=== PATIENT | female | born 1970 | race African-American/Black ===

== ENCOUNTER 2017-07-14 18:09 | Emergency (ER) | payer SELFPAY ==
[~2017-07-14 18:09] MED LIST: ASPI81TA82 PO; HYDR-3534 PO
[2017-07-14 18:10] VITALS: BP 140/70; PULSE 72; RESP 15; TEMP 98.2; O2SAT 98
--- NOTE | 2017-07-14 18:25 | PD ---
Physical Exam Date Seen by Provider: Jul 14, 2017 Time Seen by Provider: 18:21 Narrative 47-year-old female presents the emergency department with left foot pain which started on Tuesday. Patient states it's gotten much worse since last night into today. Pain is localized to the distal lateral sole. There are no open wounds or cracks in the skin. No history of this in the past. Pain is 8 out of 10. No history of gout or arthritis. No known drug allergies. Vitals are stable, patient is awaiting med bed placement. Data Data Last Documented VS Vital Signs Date Time Temp Pulse Resp B/P (MAP) Pulse Ox O2 Delivery O2 Flow Rate FiO2 07/14/17 18:10 98.2 72 15 140/70 (93) 98 MDM Medical Record Reviewed: Yes Supervised Visit with JELLY: Yes Condition: Stable Bob Shane Jul 14, 2017 18:25
[2017-07-14] MEDS ORDERED: ASPI81CH CHEW (19:09)
--- NOTE | 2017-07-14 19:10 | PD ---
HPI Chief Complaint: Edema Time Seen by Provider: 19:00 Travel History International Travel<30 days: No Contact w/Intl Traveler<30days: No Traveled to known affect area: No History of Present Illness HPI 47-year-old female presents for evaluation of left foot pain. Symptoms started 2 days ago. The pain is an aching pain which is constant but worsened walking. Pain is localized to the plantar aspect of the left forefoot. She tried using ibuprofen the pain persisted which prompted evaluation. She denies any trauma but she does note that she is currently on vacation from [place] and has been walking much more than usual. She has no other complaints at this time. PFSH Past Medical History Cardiovascular Problems: Yes (MVP, RHEUMATIC HEART DISEASE) Diminished Hearing: No Immunizations Current: Yes ?: Not LMP: HYSTERECTOMY Past Surgical History Genitourinary Surgery: Yes Hysterectomy: Yes Social History Alcohol Use: No Tobacco Use: No Substance Use: No Allergies-Medications (Allergen,Severity, Reaction): Coded Allergies: No Known Allergies (Unverified , 07/14/17) Reported Meds & Prescriptions Reported Meds & Active Scripts Active Ibuprofen 800 Mg Tab 800 Mg PO Q6HR PRN Reported Aspirin 81 Mg Chew 81 Mg CHEW DAILY Review of Systems General / Constitutional: No: Fever Musculoskeletal: Positive: Pain, No: Limited ROM Skin: No Rash Physical Exam Narrative GENERAL: Well-nourished female in no acute distress SKIN: Warm and dry. No bruising or soft tissue swelling HEAD: Atraumatic. Normocephalic. EYES: Pupils equal and round. No scleral icterus. No injection or drainage. ENT: No nasal bleeding or discharge. Mucous membranes pink and moist. NECK: Trachea midline. No JVD. CARDIOVASCULAR: Regular rate and rhythm. No murmur appreciated. RESPIRATORY: No accessory muscle use. Clear to auscultation. Breath sounds equal bilaterally. GASTROINTESTINAL: Abdomen soft, non-tender, nondistended. Hepatic and splenic margins not palpable. MUSCULOSKELETAL: No obvious deformities. There is focal tenderness to palpation of the plantar aspect of the left forefoot soft tissue. There is no tenderness to palpation along the left foot metatarsals or the toes. The patient has pain in the left forefoot with dorsiflexion of her left ankle. There is no ankle tenderness. 2+ dorsalis pedis and posterior tibial pulses. NEUROLOGICAL: Awake and alert. No obvious cranial nerve deficits. Motor grossly within normal limits. Normal speech. Data Data Last Documented VS Vital Signs Date Time Temp Pulse Resp B/P (MAP) Pulse Ox O2 Delivery O2 Flow Rate FiO2 07/14/17 18:10 98.2 72 15 140/70 (93) 98 Orders Orders Foot, Complete ([id number]) (07/14/17 ) Ice/Cold Pack (07/14/17 19:08) Ketorolac Inj (Toradol Inj) (07/14/17 19:15) Splint Or Brace Apply/Monitor (07/14/17 20:14) [facility] Medical Decision Making Medical Screen Exam Complete: Yes Emergency Medical Condition: Yes Medical Record Reviewed: Yes Interpretation(s) CONCLUSION: Nonspecific soft tissue swelling of the forefoot. No fracture or foreign body. Differential Diagnosis Plantar fasciitis, cellulitis, metatarsal stress fracture, tendinitis Narrative Course 47-year-old female here with pain in the plantar aspect of the left forefoot that is worse with walking for the past few days. Examination reveals some focal tenderness to palpation of the soft tissue aspect of the left forefoot consistent with likely fasciitis. X-ray imaging was performed revealing no acute bony abnormalities. The patient was given a dose of Toradol. She is being discharged with a postop shoe, ibuprofen prescription. Diagnosis Primary Impression: Plantar fasciitis of left foot Additional Instructions: Ice pack several times a day 20 minutes at a time. Avoid activities that exacerbate the pain. Ibuprofen as needed. Follow-up with primary care physician in 2 weeks. Return for any emergent medical conditions. Med/Other Pt SpecificInfo: Prescription(s) given Scripts Ibuprofen (Ibuprofen) 800 Mg Tab 800 MG PO Q6HR Y for PAIN, #40 TAB 0 Refills Prov: Charlene Laws DO 07/14/17 Disposition: 01 DISCHARGE HOME Condition: Stable Andrea Ching Jul 14, 2017 19:10
[2017-07-14] MEDS ORDERED: KETOROLAC TROMETHAMINE 60 MG/2 ML (IM) VIAL IM ONE (19:15)
--- NOTE | 2017-07-14 19:41 | RADRPT ---
EXAM DATE/TIME: 07/14/2017 19:25 [facility] COMPARISON: No previous studies available for comparison. INDICATIONS : Left foot pain on bottom of foot, no known injury. MEDICAL HISTORY : None. SURGICAL HISTORY : None. ENCOUNTER: Initial ACUITY: 2 days PAIN SCORE: 10/10 LOCATION: Left foot FINDINGS: Bones of the left foot are intact and normally aligned. Mild soft tissue swelling plantar/lateral asp ect of the forefoot. No radiopaque foreign body. CONCLUSION: Nonspecific soft tissue swelling of the forefoot. No fracture or foreign body. Papito Berkowitz MD on July 14, 2017 at 19:39 Board Certified Radiologist. This report was verified electronically.
[2017-07-14] MEDS ORDERED: IBUP800T23 PO (20:13)
== END 2017-07-14 21:00 | disposition home or self-care (01) ==
LOC: NEPC 18:09
DX: M72.2 Plantar fascial fibromatosis (principal); I09.9 Rheumatic heart disease, unspecified; Z79.82 Long term (current) use of aspirin
CPT/HCPCS: 73630; 96372; 99284; J1885; L3260

== ENCOUNTER 2017-09-22 20:42 | Emergency (ER) | payer SELFPAY ==
[~2017-09-22 20:42] MED LIST changes: +ASPI-516 CHEW; -ASPI81TA82 PO; -HYDR-3534 PO; +IBUP1TAB7 PO
[2017-09-22] MEDS ORDERED: IOHEXOL 350 MG/ML 10 ML VIAL (for RAD DIAG) IVCONTRAST ONE (20:43)
[2017-09-22 20:46] VITALS: BP 110/58; PULSE 87; RESP 20; TEMP 100.8; O2SAT 99
[2017-09-22] MEDS ORDERED: SODIUM CHLOR 0.9% 1000 ML INJ 1,000 ML IV SCH (22:03)
--- NOTE | 2017-09-22 22:07 | PD ---
HPI Chief Complaint: Abdominal Pain Time Seen by Provider: 21:55 Travel History International Travel<30 days: No Contact w/Intl Traveler<30days: No Traveled to known affect area: No History of Present Illness HPI This is a 47-year-old female who presents accompanied by family members for evaluation of abdominal pain. Symptoms started yesterday. She describes it as a crampy intermittent pain in the lower abdominal region. She endorses associated nausea, multiple episodes of watery stool as well as vomiting which just started prior to arrival here. She endorses subjective fevers at home. Denies flank pain, dysuria, vaginal burning or discharge. History of total hysterectomy. No sick contacts. No recent travel. No recent antibiotic use, no recent change in diet. No other complaints. PFSH Past Medical History Heart Rhythm Problems: Yes (MITRAL PROLASPE VALVE ) Cardiovascular Problems: Yes (MVP, RHEUMATIC HEART DISEASE) Diminished Hearing: No Immunizations Current: Yes ?: Not Past Surgical History Genitourinary Surgery: Yes Hysterectomy: Yes Social History Alcohol Use: No Tobacco Use: No Substance Use: No Allergies-Medications (Allergen,Severity, Reaction): Coded Allergies: No Known Allergies (Unverified Adverse Reaction, Unknown, 09/22/17) Reported Meds & Prescriptions Reported Meds & Active Scripts Active Pepcid (Famotidine) 20 Mg Tab 20 Mg PO BID Nexium (Esomeprazole DR) 20 Mg Capdr 20 Mg PO DAILY Ibuprofen 800 Mg Tab 800 Mg PO Q6HR PRN Reported Aspirin 81 Mg Chew 81 Mg CHEW DAILY Review of Systems Except as stated in HPI: all other systems reviewed are Neg Physical Exam Narrative GENERAL: Well-developed well-nourished female in no acute distress, febrile. SKIN: Warm and dry. HEAD: Atraumatic. Normocephalic. EYES: Pupils equal and round. No scleral icterus. No injection or drainage. ENT: No nasal bleeding or discharge. Mucous membranes pink and moist. NECK: Trachea midline. No JVD. CARDIOVASCULAR: Regular rate and rhythm. No murmur appreciated. RESPIRATORY: No accessory muscle use. Clear to auscultation. Breath sounds equal bilaterally. GASTROINTESTINAL: Abdomen soft, tender to palpation in the right periumbilical and right lower quadrant region without guarding. No CVA tenderness. MUSCULOSKELETAL: No obvious deformities. No clubbing. No cyanosis. No edema. NEUROLOGICAL: Awake and alert. No obvious cranial nerve deficits. Motor grossly within normal limits. Normal speech. PSYCHIATRIC: Appropriate mood and affect; insight and judgment normal. Data Data Last Documented VS Vital Signs Date Time Temp Pulse Resp B/P (MAP) Pulse Ox O2 Delivery O2 Flow Rate FiO2 09/23/17 01:40 09/23/17 01:39 84 16 99 Room Air 09/22/17 20:46 100.8 Orders Orders Complete Blood Count With Diff (09/22/17 22:03) Comprehensive Metabolic Panel (09/22/17 22:03) Lipase (09/22/17 22:03) Prothrombin Time / Inr (Pt) (09/22/17 22:03) Act Partial Throm Time (Ptt) (09/22/17 22:03) Urinalysis - C+S If Indicated (09/22/17 22:03) Ct Abd/Pel W Iv Contrast(Rout) (09/22/17 22:03) Iv Access Insert/Monitor (09/22/17 22:03) Ecg Monitoring (09/22/17 22:03) Oximetry (09/22/17 22:03) Morphine Inj (Morphine Inj) (09/22/17 22:15) Ondansetron Inj (Zofran Inj) (09/22/17 22:15) Sodium Chlor 0.9% 1000 Ml Inj (Ns 1000 M (09/22/17 22:03) Sodium Chloride 0.9% Flush (Ns Flush) (09/22/17 22:15) Sepsis Workup Initiated (09/22/17 ) Lactic Acid Sepsis Protocol (09/22/17 22:03) Blood Culture (09/22/17 22:03) Iohexol 350 Inj (Omnipaque 350 Inj) (09/22/17 20:43) Pantoprazole Inj (Protonix Inj) (09/23/17 00:00) Ed Discharge Order (09/23/17 01:17) Labs Laboratory Tests Test 09/22/17 22:19 09/23/17 00:05 White Blood Count 10.6 TH/MM3 Red Blood Count 5.02 MIL/MM3 Hemoglobin 11.8 GM/DL Hematocrit 36.6 % Mean Corpuscular Volume 72.8 FL Mean Corpuscular Hemoglobin 23.5 PG Mean Corpuscular Hemoglobin Concent 32.2 % Red Cell Distribution Width 15.2 % Platelet Count 225 TH/MM3 Mean Platelet Volume 9.0 FL Neutrophils (%) (Auto) 87.6 % Lymphocytes (%) (Auto) 4.1 % Monocytes (%) (Auto) 7.6 % Eosinophils (%) (Auto) 0.4 % Basophils (%) (Auto) 0.3 % Neutrophils # (Auto) 9.3 TH/MM3 Lymphocytes # (Auto) 0.4 TH/MM3 Monocytes # (Auto) 0.8 TH/MM3 Eosinophils # (Auto) 0.0 TH/MM3 Basophils # (Auto) 0.0 TH/MM3 CBC Comment DIFF FINAL Differential Comment Prothrombin Time 12.0 SEC Prothromb Time International Ratio 1.2 RATIO Activated Partial Thromboplast Time 28.0 SEC Blood Urea Nitrogen 7 MG/DL Creatinine 1.05 MG/DL Random Glucose 128 MG/DL Total Protein 7.3 GM/DL Albumin 3.7 GM/DL Calcium Level 8.1 MG/DL Alkaline Phosphatase 44 U/L Aspartate Amino Transf (AST/SGOT) 212 U/L Alanine Aminotransferase (ALT/SGPT) 240 U/L Total Bilirubin 0.5 MG/DL Sodium Level 135 MEQ/L Potassium Level 3.8 MEQ/L Chloride Level 106 MEQ/L Carbon Dioxide Level 20.2 MEQ/L Anion Gap 9 MEQ/L Estimat Glomerular Filtration Rate 68 ML/MIN Lactic Acid Level 0.9 mmol/L Lipase 134 U/L Urine Color LIGHT-YELLOW Urine Turbidity CLEAR Urine pH 5.0 Urine Specific [place] 1.024 Urine Protein NEG mg/dL Urine Glucose (UA) NEG mg/dL Urine Ketones NEG mg/dL Urine Occult Blood NEG Urine Nitrite NEG Urine Bilirubin NEG Urine Urobilinogen LESS THAN 2.0 MG/DL Urine Leukocyte Esterase TRACE Urine RBC 2 /hpf Urine WBC 3 /hpf Urine Squamous Epithelial Cells 2 /hpf Urine Bacteria OCC /hpf Urine Mucus FEW /lpf Microscopic Urinalysis Comment CULT NOT INDICATED MDM Medical Decision Making Medical Screen Exam Complete: Yes Emergency Medical Condition: Yes Medical Record Reviewed: Yes Differential Diagnosis Appendicitis, colitis, diverticulitis, cystitis, pyelonephritis, ureteral stone , cholecystitis Narrative Course The patient was placed on ECG monitoring pulse oximetry. Plan is for basic lab work, blood cultures, CT abdomen and pelvis. She will be given IV fluids, Zofran, morphine. At the end of my shift the patient was signed out to Dr. Marco A pending urinalysis results. She'll be given a copy of her CT results prior to discharge. Scripts Famotidine (Pepcid) 20 Mg Tab 20 MG PO BID, #40 TAB 0 Refills Prov: Jaime Strickland MD 09/23/17 Esomeprazole (Nexium) 20 Mg Capdr 20 MG PO DAILY, #20 CAP 0 Refills Prov: Jaime Strickland MD 09/23/17 Andrea Ching Sep 22, 2017 22:07
[2017-09-22] MEDS ORDERED: MORPHINE SULFATE 4 MG/ML INJ IV PUSH ONE (22:15)
[2017-09-22] MEDS ORDERED: ONDANSETRON HCL 4 MG/2 ML VIAL IVP ONE (22:15)
[2017-09-22] MEDS ORDERED: SODIUM CHLORIDE 0.9% FLUSH 10 ML FLUSH IV FLUSH PRN (22:15)
[2017-09-22 22:19] VITALS: RESP 18; O2SAT 97
[2017-09-22 22:43] LABS: AUTOMATED NEUTROPHIL # 9.3 TH/MM3 (1.8-7.7); BASOPHIL % 0.3 % (0.0-2.0); EOSINOPHIL % 0.4 % (0.0-4.0); HEMATOCRIT 36.6 % (35.0-46.0); HEMO FLAGS DIFF FINAL; LYMPH % 4.1 % (9.0-44.0); LYMPHOCYTE # 0.4 TH/MM3 (1.0-4.8); MEAN CELL VOLUME 72.8 FL (80.0-100.0); MEAN CORPUSCULAR HEMOGLOBIN 23.5 PG (27.0-34.0); MEAN CORPUSCULAR HGB CONC 32.2 % (32.0-36.0); MONO % 7.6 % (0.0-8.0); NEUT % 87.6 % (16.0-70.0); PLATELET COUNT 225 TH/MM3 (150-450); RED BLOOD COUNT 5.02 MIL/MM3 (4.00-5.30); RED CELL DISTRIBUTION WIDTH 15.2 % (11.6-17.2); WHITE BLOOD COUNT 10.6 TH/MM3 (4.0-11.0)
[2017-09-22 22:55] LABS: INTERNATIONAL NORMALIZED RATIO 1.2 RATIO
[2017-09-22 22:56] LABS: ANION GAP 9 MEQ/L (5-15); AST (GOT) 212 U/L (15-37); BICARBONATE 20.2 MEQ/L (21.0-32.0); BLOOD UREA NITROGEN 7 MG/DL (7-18); CHLORIDE 106 MEQ/L (98-107); GLOMERULAR FILTRATION RATE 68 ML/MIN (>89); POTASSIUM 3.8 MEQ/L (3.5-5.1); SODIUM (NA) 135 MEQ/L (136-145)
[2017-09-22 22:57] LABS: ALT (GPT) 240 U/L (10-53)
[2017-09-22 22:59] LABS: ALKALINE PHOSPHATASE 44 U/L (45-117); TOTAL BILIRUBIN ADULT 0.5 MG/DL (0.2-1.0)
--- NOTE | 2017-09-22 23:47 | RADRPT ---
EXAM DATE/TIME: 09/22/2017 23:21 [facility] COMPARISON: No previous studies available for comparison. INDICATIONS : Abdominal pain with diarrhea. IV CONTRAST: 100 cc Omnipaque 350 (iohexol) IV ORAL CONTRAST: No oral contrast ingested. RADIATION DOSE: 6.71 CTDIvol (mGy) MEDICAL HISTORY : None SURGICAL HISTORY : Hysterectomy. ENCOUNTER: Initial ACUITY: 1 day PAIN SCALE: 8/10 LOCATION: abdomen TECHNIQUE: Volumetric scanning of the abdomen and pelvis was performed. Using automated exposure control and ad justment of the mA and/or kV according to patient size, radiation dose was kept as low as reasonably achievable to obtain optimal diagnostic quality images. DICOM format image data is available electro nically for review and comparison. FINDINGS: LOWER LUNGS: The visualized lower lungs are clear. LIVER: Homogeneous density without lesion. There is no dilation of the biliary tree. There are stones with in the gallbladder. No wall thickening or pericholecystic fluid is present. SPLEEN: Normal size without lesion. PANCREAS: There is a well-defined ovoid cystic lesion in the uncinate process measuring 16 mm. Main pancreatic duct is not significantly dilated. No solid mass is seen. KIDNEYS: Normal in size and shape. There is no mass, stone or hydronephrosis. ADRENAL GLANDS: Within normal limits. VASCULAR: There is no aortic aneurysm. BOWEL/MESENTERY: The stomach, small bowel, and colon demonstrate no acute abnormality. There is no free intraperitone al air or fluid. ABDOMINAL WALL: Within normal limits. RETROPERITONEUM: There is no lymphadenopathy. BLADDER: No wall thickening or mass. REPRODUCTIVE: Uterus is absent. No adnexal mass is seen. INGUINAL: There is no lymphadenopathy or hernia. MUSCULOSKELETAL: No acute osseous abnormality. There is fatty atrophy versus lipoma in the region of the left adductor brevis muscle. CONCLUSION: 1. No acute finding is identified to explain the clinical symptoms. There is cholelithiasis but no ac sarina inflammatory changes are appreciated. 2. There is a 16 mm cystic lesion within the uncinate process of the pancreas. On an outpatient elect peter basis this nonemergent finding should undergo additional characterization with pancreas protocol MRI with and without intravenous contrast. Papito Blackwell MD on September 22, 2017 at 23:39 Board Certified Radiologist. This report was verified electronically.
[2017-09-23] MEDS ORDERED: PANTOPRAZOLE SODIUM 40 MG VIAL IVP ONE
[2017-09-23 00:30] VITALS: BP 114/62; PULSE 90; RESP 16; O2SAT 100
[2017-09-23 00:37] LABS: BACTERIA, URINE OCC /hpf; BLOOD, URINE NEG (NEG); COMMENT (UR) CULT NOT INDICATED; CULTURE IF INDICATED CULT NOT INDICATED; GLUCOSE,URINE NEG (NEG); KETONE, URINE NEG (NEG); MUCUS URINE FEW /lpf (OCC); NITRITE,URINE NEG (NEG); SQUAMOUS EPITHELIAL CELL URINE 2 /hpf (0-5); URINE COLOR LIGHT-YELLOW (YELLW/STRAW)
[2017-09-23] MEDS ORDERED: FAMO1TAB37 PO (01:16)
[2017-09-23] MEDS ORDERED: NEXI20CA PO (01:16)
--- NOTE | 2017-09-23 01:17 | PD ---
Physical Exam Date Seen by Provider: Oct 21, 2017 Time Seen by Provider: 23:00 Narrative Patient comes in with abdominal pain which is periumbilical right more than left. Protonix is given and her pain is alleviated completely. On repeat exam by this Ethel. she has no pain with percussion deep palpation of her abdomen. CAT scan reviewed by me shows that she does have a cystic structure in her uncal process of her pancreas. I add lipase to her labs and will discharge if normal for close follow-up advising her she must follow his pancreatic cyst with her primary doctor Data Data Last Documented VS Vital Signs Date Time Temp Pulse Resp B/P (MAP) Pulse Ox O2 Delivery O2 Flow Rate FiO2 09/23/17 01:40 09/23/17 01:39 84 16 99 Room Air 09/22/17 20:46 100.8 Orders Orders Complete Blood Count With Diff (09/22/17 22:03) Comprehensive Metabolic Panel (09/22/17 22:03) Lipase (09/22/17 22:03) Prothrombin Time / Inr (Pt) (09/22/17 22:03) Act Partial Throm Time (Ptt) (09/22/17 22:03) Urinalysis - C+S If Indicated (09/22/17 22:03) Ct Abd/Pel W Iv Contrast(Rout) (09/22/17 22:03) Iv Access Insert/Monitor (09/22/17 22:03) Ecg Monitoring (09/22/17 22:03) Oximetry (09/22/17 22:03) Morphine Inj (Morphine Inj) (09/22/17 22:15) Ondansetron Inj (Zofran Inj) (09/22/17 22:15) Sodium Chlor 0.9% 1000 Ml Inj (Ns 1000 M (09/22/17 22:03) Sodium Chloride 0.9% Flush (Ns Flush) (09/22/17 22:15) Sepsis Workup Initiated (09/22/17 ) Lactic Acid Sepsis Protocol (09/22/17 22:03) Blood Culture (09/22/17 22:03) Iohexol 350 Inj (Omnipaque 350 Inj) (09/22/17 20:43) Pantoprazole Inj (Protonix Inj) (09/23/17 00:00) Ed Discharge Order (09/23/17 01:17) Labs Laboratory Tests Test 09/22/17 22:19 09/23/17 00:05 White Blood Count 10.6 TH/MM3 Red Blood Count 5.02 MIL/MM3 Hemoglobin 11.8 GM/DL Hematocrit 36.6 % Mean Corpuscular Volume 72.8 FL Mean Corpuscular Hemoglobin 23.5 PG Mean Corpuscular Hemoglobin Concent 32.2 % Red Cell Distribution Width 15.2 % Platelet Count 225 TH/MM3 Mean Platelet Volume 9.0 FL Neutrophils (%) (Auto) 87.6 % Lymphocytes (%) (Auto) 4.1 % Monocytes (%) (Auto) 7.6 % Eosinophils (%) (Auto) 0.4 % Basophils (%) (Auto) 0.3 % Neutrophils # (Auto) 9.3 TH/MM3 Lymphocytes # (Auto) 0.4 TH/MM3 Monocytes # (Auto) 0.8 TH/MM3 Eosinophils # (Auto) 0.0 TH/MM3 Basophils # (Auto) 0.0 TH/MM3 CBC Comment DIFF FINAL Differential Comment Prothrombin Time 12.0 SEC Prothromb Time International Ratio 1.2 RATIO Activated Partial Thromboplast Time 28.0 SEC Blood Urea Nitrogen 7 MG/DL Creatinine 1.05 MG/DL Random Glucose 128 MG/DL Total Protein 7.3 GM/DL Albumin 3.7 GM/DL Calcium Level 8.1 MG/DL Alkaline Phosphatase 44 U/L Aspartate Amino Transf (AST/SGOT) 212 U/L Alanine Aminotransferase (ALT/SGPT) 240 U/L Total Bilirubin 0.5 MG/DL Sodium Level 135 MEQ/L Potassium Level 3.8 MEQ/L Chloride Level 106 MEQ/L Carbon Dioxide Level 20.2 MEQ/L Anion Gap 9 MEQ/L Estimat Glomerular Filtration Rate 68 ML/MIN Lactic Acid Level 0.9 mmol/L Lipase 134 U/L Urine Color LIGHT-YELLOW Urine Turbidity CLEAR Urine pH 5.0 Urine Specific [place] 1.024 Urine Protein NEG mg/dL Urine Glucose (UA) NEG mg/dL Urine Ketones NEG mg/dL Urine Occult Blood NEG Urine Nitrite NEG Urine Bilirubin NEG Urine Urobilinogen LESS THAN 2.0 MG/DL Urine Leukocyte Esterase TRACE Urine RBC 2 /hpf Urine WBC 3 /hpf Urine Squamous Epithelial Cells 2 /hpf Urine Bacteria OCC /hpf Urine Mucus FEW /lpf Microscopic Urinalysis Comment CULT NOT INDICATED [facility] Medical Record Reviewed: Yes Supervised Visit with JELLY: Yes Differential Diagnosis Her lipase returns at 134 she is not having pancreatitis her symptoms are completely relieved by Protonix IV discharge her with a prescription for Protonix and Pepcid and follow up as an outpatient advising her to follow-up with the CAT scan results Narrative Course re-eval no abdominal pain on palpation after protonix Diagnosis Primary Impression: Gastritis Qualified Codes: K29.70 - Gastritis, unspecified, without bleeding Patient Instructions: Gastritis (ED), General Instructions Scripts Famotidine (Pepcid) 20 Mg Tab 20 MG PO BID, #40 TAB 0 Refills Prov: Jaime Strickland MD 09/23/[address] (Nexium) 20 Mg Capdr 20 MG PO DAILY, #20 CAP 0 Refills Prov: Jaime Strickland MD 09/23/17 Disposition: 01 DISCHARGE HOME Condition: Good Jaime Strickland MD Sep 23, 2017 01:17
[2017-09-23 01:39] VITALS: BP 112/60; PULSE 84; RESP 16; O2SAT 99
== END 2017-09-23 02:03 | disposition home or self-care (01) ==
LOC: NEPC 20:42
DX: K29.70 Gastritis, unspecified, without bleeding (principal); R11.2 Nausea with vomiting, unspecified
CPT/HCPCS: 74177; 80053; 81001; 83605; 83690; 85025; 85610; 85730; 87040; 96361; 96374; 96375; 99285; C9113; J2270; J2405; J7030; Q9967